=== PATIENT | male | born 1940 ===

== ENCOUNTER 2020-09-12 05:41 | Inpatient (IN) | payer MEDICARE ==
[2020-09-09 13:46] LABS: BASOPHILS % (AUTO) 0 % (0-1); EOSINOPHILS % (AUTO) 1 % (1-7); LYMPHOCYTES % (AUTO) 27 % (22-44); MEAN CORPUSCULAR HEMOGLOBIN 29.3 pg (27.5-34.5); MEAN CORPUSCULAR HGB CONC 33.5 g/dL (33.2-36.2); MONOCYTES % (AUTO) 7 % (2-9); NEUTROPHILS % (AUTO) 64 % (42-75); PLATELET COUNT 326 x10^3/uL (130-400); RED BLOOD COUNT 4.67 x10^6/uL (4.38-5.82); RED CELL DISTRIBUTION WIDTH 13.5 % (9.4-14.8)
[2020-09-09 13:54] LABS: ALBUMIN 3.6 g/dL (3.4-5.0); ANION GAP 5 mmol/L (5-15); CALCIUM 8.8 mg/dL (8.5-10.1); CHLORIDE 111 mmol/L (98-107)
[2020-09-09 13:56] LABS: ALANINE AMINOTRANSFERASE 21 U/L (12-78); ALKALINE PHOSPHATASE 78 U/L (45-117); BILIRUBIN,TOTAL 0.3 mg/dL (0.2-1.0); CREATININE 0.76 mg/dL (0.7-1.3); TOTAL PROTEIN 7.6 g/dL (6.4-8.2)
[~2020-09-12] VITALS: Ht 167.6 cm; Wt 61.1 kg
[~2020-09-12 05:41] MED LIST: FLUT250D2 INH; FURO20TA3 PO; OMEP-110 PO; TAMS-11 PO
[2020-09-12] MEDS ORDERED: LIDOCAINE-MPF 1%, 2ML INFIL ONE (06:30)
[2020-09-12] MEDS ORDERED: LACTATED RINGERS 1,000 ML IV SCH (06:30)
[2020-09-12] MEDS ORDERED: CHLORHEXIDINE 15 ML UDC PO ONE (06:30)
[2020-09-12] MEDS ORDERED: FENTANYL PF 100 MCG/2ML ONE ×3 (07:04→08:46)
[2020-09-12] MEDS ORDERED: hydrALAzine 20 MG/ML, 1ML IV PRN (07:30)
[2020-09-12] MEDS ORDERED: HYDROmorphone 1 MG/ML, 1ML INJ IVPush PRN (07:30)
[2020-09-12] MEDS ORDERED: MEPERIDINE/PF 25MG/0.5ML IVPush PRN (07:30)
[2020-09-12] MEDS ORDERED: PROMETHAZINE 25 MG/ML, 1ML IVPush PRN (07:30)
[2020-09-12] MEDS ORDERED: LABETALOL 5MG/ML, 20ML IV PRN (07:30)
[2020-09-12] MEDS ORDERED: HALOPERIDOL 5 MG/ML IV PRN (07:30)
[2020-09-12] MEDS ORDERED: DOXYCYCLINE 500 MG in SODIUM CHLORIDE 0.9% 50 ML IVPB SCH (07:30)
[2020-09-12] MEDS ORDERED: ACETAMINOPHEN 325 MG TABLET PO PRN (07:30)
[2020-09-12] MEDS ORDERED: DIPHENHYDRAMINE 50 MG/ML, 1ML IVPush PRN (07:30)
[2020-09-12] MEDS ORDERED: OXYcodone 5 MG/5 ML ORAL.SOL UDC PO PRN (07:30)
[2020-09-12] MEDS ORDERED: EPHEDRINE 50 MG/ML, 1ML ONE (07:52)
[2020-09-12] MEDS ORDERED: GLYCOPYRROLATE 0.2MG/1ML, 5ML ONE (07:54)
[2020-09-12] MEDS ORDERED: CEFAZOLIN 1,000 MG ONE (07:54)
[2020-09-12] MEDS ORDERED: ONDANSETRON 2MG/ML, 2ML ONE (07:54)
[2020-09-12] MEDS ORDERED: ROCURONIUM 10MG/ML,5ML ONE (07:54)
[2020-09-12] MEDS ORDERED: PROPOFOL 10 MG/ML, 20ML ONE (07:54)
[2020-09-12] MEDS ORDERED: NEOSTIGMINE 1 MG/ML, 10ML ONE (07:54)
[2020-09-12] MEDS ORDERED: DEXAMETHASONE 4 MG/ML, 1ML ONE (07:54)
[2020-09-12] MEDS ORDERED: SUCCINYLCHOLINE 20 MG/ML, 10ML ONE (07:54)
[2020-09-12] MEDS ORDERED: BUPIVACAINE/PF-EPI 0.5% 1:200K INFIL ONE (07:54)
[2020-09-12] MEDS ORDERED: SUGAMMADEX 200 MG/2 ML IVPush ONE (07:56)
[2020-09-12] MEDS ORDERED: ACETAMINOPHEN 650 MG/20.3 ML UDC ONE (08:13)
[2020-09-12] MEDS ORDERED: OXYcodone 5 MG/5 ML ORAL.SOL UDC ONE (08:13)
[2020-09-12] MEDS: FENTANYL PF 100 MCG/2ML IV PRN ×3 (08:16→08:50)
[2020-09-12] MEDS ORDERED: morphine SULFATE 10 MG/ML, 1ML IV PRN (10:00)
[2020-09-12] MEDS ORDERED: ONDANSETRON 2MG/ML, 2ML IV PRN (10:00)
[2020-09-12] MEDS ORDERED: KETOROLAC 30 MG/1 ML ONE (10:07)
[2020-09-12] MEDS: POTASSIUM CHLORIDE 20 MEQ in LACTATED RINGERS 1,000 ML IV SCH ×2 (11:55→23:20)
[2020-09-12 14:10] VITALS: BP 114/64
[2020-09-12] MEDS: HYDROcodone/APAP 5/325 TABLET PO PRN ×2 (14:30→20:41)
[2020-09-12] MEDS: CEFAZOLIN PMX 1GM/50ML 50 ML IVPB SCH (16:56)
[2020-09-12 19:23] VITALS: BP 107/54
[2020-09-12] MEDS: TAMSULOSIN 0.4 MG CAP.ER.24H PO SCH (20:41)
[2020-09-13 00:37] VITALS: BP 120/61
[2020-09-13] MEDS: CEFAZOLIN PMX 1GM/50ML 50 ML IVPB SCH (00:53)
[2020-09-13 03:58] VITALS: BP 134/74
[2020-09-13] MEDS: HYDROcodone/APAP 5/325 TABLET PO PRN ×5 (04:02→22:49)
[2020-09-13] MEDS: OMEPRAZOLE 20 MG CAPSULE.DR PO SCH (05:57)
[2020-09-13] MEDS: ENOXAPARIN 40 MG/0.4 ML SQ SCH (05:57)
[2020-09-13 08:20] VITALS: BP 141/88
[2020-09-13] MEDS: TAMSULOSIN 0.4 MG CAP.ER.24H PO SCH ×2 (09:22→21:23)
[2020-09-13] MEDS: FUROSEMIDE 20 MG TABLET PO SCH (09:22)
[2020-09-13] MEDS: POTASSIUM CHLORIDE 20 MEQ in LACTATED RINGERS 1,000 ML IV SCH ×2 (09:23→20:01)
[2020-09-13 12:46] VITALS: BP 119/69
[2020-09-13 20:18] VITALS: BP 144/79
[2020-09-14 02:07] VITALS: BP 146/74
[2020-09-14] MEDS: HYDROcodone/APAP 5/325 TABLET PO PRN ×3 (04:46→20:59)
[2020-09-14] MEDS: POTASSIUM CHLORIDE 20 MEQ in LACTATED RINGERS 1,000 ML IV SCH ×2 (05:52→15:31)
[2020-09-14] MEDS: ENOXAPARIN 40 MG/0.4 ML SQ SCH (06:09)
[2020-09-14] MEDS: OMEPRAZOLE 20 MG CAPSULE.DR PO SCH (06:09)
[2020-09-14 07:33] VITALS: BP 167/81
[2020-09-14] MEDS: FUROSEMIDE 20 MG TABLET PO SCH (08:26)
[2020-09-14] MEDS: TAMSULOSIN 0.4 MG CAP.ER.24H PO SCH ×2 (08:26→20:59)
[2020-09-14 13:47] VITALS: BP 130/73
[2020-09-14 21:21] VITALS: BP 122/62
[2020-09-15] MEDS: POTASSIUM CHLORIDE 20 MEQ in LACTATED RINGERS 1,000 ML IV SCH (01:27)
[2020-09-15 02:30] VITALS: BP 127/70
[2020-09-15] MEDS: ENOXAPARIN 40 MG/0.4 ML SQ SCH (05:45)
[2020-09-15] MEDS: OMEPRAZOLE 20 MG CAPSULE.DR PO SCH (05:45)
[2020-09-15 07:30] VITALS: BP 159/74
[2020-09-15] MEDS: FUROSEMIDE 20 MG TABLET PO SCH (10:33)
[2020-09-15] MEDS: HYDROcodone/APAP 5/325 TABLET PO PRN (10:33)
[2020-09-15] MEDS: TAMSULOSIN 0.4 MG CAP.ER.24H PO SCH (10:33)
== END 2020-09-15 12:00 | disposition home or self-care (01) | DRG 168 ==
LOC: EDBD → ORIP 05:41 → 4NE 09:10 → MERGE 09:30 → EDBD 09:30 → DCLOUNGE 09-15 11:52
PROVIDERS: ADMIT Surgery; ATTEND Surgery
PROC: 0BBP4ZX Excision of Left Pleura, Percutaneous Endoscopic Approach, Diagnostic (ICD-10-PCS; 2020-09-12)
PROC: 0WCB4ZZ Extirpation of Matter from Left Pleural Cavity, Percutaneous Endoscopic Approach (ICD-10-PCS; 2020-09-12)
PROC: 3E0L4GC Introduction of Other Therapeutic Substance into Pleural Cavity, Percutaneous Endoscopic Approach (ICD-10-PCS; principal; 2020-09-12 07:30)
DX: J90 Pleural effusion, not elsewhere classified (principal); Z20.822 Contact with and (suspected) exposure to COVID-19; E78.5 Hyperlipidemia, unspecified; K21.9 Gastro-esophageal reflux disease without esophagitis; J44.9 Chronic obstructive pulmonary disease, unspecified; N40.0 Benign prostatic hyperplasia without lower urinary tract symptoms; I10 Essential (primary) hypertension; Z79.899 Other long term (current) drug therapy; Z90.49 Acquired absence of other specified parts of digestive tract
CPT/HCPCS: 36415; 71045; 80053; 85025; 86850; 86900; 88305; 93005; C1729; G0378; J0171; J0690; J1100; J1650; J1885; J2405; J2704; J2710; J3010; J3480; U0005; J0330; J7120; U0003